=== PATIENT | female | born 1965 | race Caucasian/White ===

== ENCOUNTER 2017-06-09 08:37 | Day surgery (SDC) | payer BC ==
[2017-06-08 09:28] VITALS: BMI 24.3
[2017-06-09] MEDS ORDERED: PROPOFOL 20 ML ONE ×2 (09:47)
[2017-06-09] MEDS ORDERED: LIDOCAINE HCL 2% (20ML MULTI-DOSE VIAL) NR ONE (09:48)
[2017-06-09 10:20] VITALS: TEMP 98.8
[2017-06-09 11:36] VITALS: BP 110/71; PULSE 54
--- NOTE | 2017-06-11 15:04 | PATH ---
Surgical Pathology Report Patient Name: LACIE GARNER [facility]. Rec. #: [id number] /Age/Gender: 1965 (Age: 52) / F Account: [id number] Location: U-ENDOSCOPY Taken: 06/09/2017 Received: 06/09/2017 Reported: 06/11/2017 Physicians: Katherine Garcia M.D. Specimen(s) Received A: BX 2ND PORTION DUODENUM B: BX ANTRUM/ STOMACH C: BX GE JUNCTION D: BX MID ESOPHAGUS Clinical History Preoperative diagnosis: Dysphagia, postprandial bloating Postoperative diagnosis: GE junction structures, GERD, hiatal hernia Final Diagnosis A. DUODENUM, SECOND PORTION/BULB, BIOPSY: DUODENAL MUCOSA WITH MILD CHRONIC DUODENITIS AND SANCHEZ'S GLAND HYPERPLASIA. B. STOMACH, ANTRUM, BIOPSY: GASTRIC ANTRAL MUCOSA WITH MILD CHRONIC GASTRITIS. IMMUNOHISTOCHEMICAL STAIN FOR H. PYLORI IS NEGATIVE. C. GASTROESOPHAGEAL (GE) JUNCTION, BIOPSY: SQUAMOUS MUCOSA WITH MODERATE TO SEVERE ACUTE ESOPHAGITIS AND ULCERATION. FUNGAL SPECIAL STAIN (PAS) IS NEGATIVE. D. MID ESOPHAGUS BIOPSY: SQUAMOUS MUCOSA WITH VASCULAR CONGESTION, AND BASAL CELL HYPERPLASIA CONSISTENT WITH MODERATE TO SEVERE REFLUX TYPE ESOPHAGITIS. Electronically Signed Janet Saenz M.D. Gross Description A. Received in formalin, labeled "biopsy second portion of duodenum/bulb" are 4 schilling, irregular portions of soft tissue ranging from 0.1-0.5 cm. in greatest dimension. The specimens are submitted in toto in one cassette. B. Received in formalin, labeled "biopsy antrum/stomach" are 2 schilling, irregular portions of soft tissue measuring 0.3 and 0.5 cm. in greatest dimension. The specimens are submitted in toto in one cassette. C. Received in formalin, labeled "biopsy GE junction" are 2 schilling, irregular portions of soft tissue averaging 0.4 cm. in greatest dimension. The specimens are submitted in toto in one cassette. D. Received in formalin, labeled "biopsy midesophagus" is a schilling, irregular portion of soft tissue measuring 0.4 cm. in greatest dimension. The specimen is submitted in toto in one cassette. 06/09/2017 saudi06/09/2017
== END 2017-06-09 11:15 | disposition home or self-care (01) ==
LOC: JASU-ENDO 08:37
PROVIDERS: ATTEND Internal Medicine Gastroenterology
PROC: 0DB68ZX Excision of Stomach, Via Natural or Artificial Opening Endoscopic, Diagnostic (ICD-10-PCS; 2017-06-09)
PROC: 0DB28ZX Excision of Middle Esophagus, Via Natural or Artificial Opening Endoscopic, Diagnostic (ICD-10-PCS; 2017-06-09)
PROC: 0DB48ZX Excision of Esophagogastric Junction, Via Natural or Artificial Opening Endoscopic, Diagnostic (ICD-10-PCS; 2017-06-09)
PROC: 0D748ZZ Dilation of Esophagogastric Junction, Via Natural or Artificial Opening Endoscopic (ICD-10-PCS; 2017-06-09)
PROC: 0DB98ZX Excision of Duodenum, Via Natural or Artificial Opening Endoscopic, Diagnostic (ICD-10-PCS; principal; 2017-06-09 09:00)
DX: K22.2 Esophageal obstruction (principal); K44.9 Diaphragmatic hernia without obstruction or gangrene; K29.80 Duodenitis without bleeding; K31.89 Other diseases of stomach and duodenum; K29.30 Chronic superficial gastritis without bleeding; K21.0 Gastro-esophageal reflux disease with esophagitis; K31.9 Disease of stomach and duodenum, unspecified
CPT/HCPCS: 84703; 88305-TC; 88312-TC; 88342-TC

== ENCOUNTER 2018-01-05 08:40 | Day surgery (SDC) | payer BC ==
[2018-01-05 09:20] VITALS: BMI 23.0
[2018-01-05 13:05] VITALS: BP 125/77; PULSE 58; TEMP 98
--- NOTE | 2018-01-07 16:01 | PATH ---
Surgical Pathology Report Patient Name: LACIE GARNER [facility]. Rec. #: [id number] /Age/Gender: 1965 (Age: 52) / F Account: [id number] Location: [facility]-ENDOSCOPY Taken: 01/05/2018 Received: 01/05/2018 Reported: 01/07/2018 Physicians: Katherine Garcia M.D. Specimen(s) Received A: BX GE JUNCTION B: BX DISTAL ESOPHAGUS Clinical History Esophageal stricture, GERD Postoperative diagnosis: Reflux esophagitis, esophageal stricture, hiatal hernia, rule out Lyman's Final Diagnosis A. GASTROESOPHAGEAL (GE) JUNCTION, 32 CM, BIOPSY: SQUAMOCOLUMNAR MUCOSA WITH MODERATE ACUTE AND CHRONIC INFLAMMATION AND CHANGES OF MODERATE TO AND SEVERE REFLUX ESOPHAGITIS. INTESTINAL METAPLASIA PRESENT CONSISTENT WITH LYMAN'S ESOPHAGUS IN A CONCORDANT WITH CLINICAL SETTING. NO DYSPLASIA IDENTIFIED. DETACHED FRAGMENT OF ACUTE INFLAMMATORY EXUDATE CONSISTENT WITH ULCER BASE. B. DISTAL ESOPHAGUS, 30 CM, BIOPSY: SQUAMOUS MUCOSA WITH BASAL CELL HYPERPLASIA, SEVERE ACUTE ESOPHAGITIS WITH ASSOCIATED ULCERATION AND REACTIVE CHANGES. NO COLUMNAR MUCOSA, INTESTINAL METAPLASIA OR DYSPLASIA IDENTIFIED. PAS FUNGAL STAIN IS NEGATIVE. Electronically Signed Janet Saenz M.D. Gross Description A. Received in formalin, labeled "biopsy GE junction stricture at 32 cm" are 3 schilling, irregular portions of soft tissue ranging from 0.3-0.5 cm. in greatest dimension. The specimens are submitted in toto in one cassette. B. Received in formalin, labeled "biopsy distal esophagus at 30 cm" are 4 schilling, irregular portions of soft tissue ranging from 0.2-0.3 cm. in greatest dimension. The specimens are submitted in toto in one cassette. 01/05/2018 formerly [facility]01/05/2018
== END 2018-01-05 13:05 | disposition home or self-care (01) ==
LOC: JASU-ENDO 08:40
PROVIDERS: ATTEND Internal Medicine Gastroenterology
PROC: 0D738ZZ Dilation of Lower Esophagus, Via Natural or Artificial Opening Endoscopic (ICD-10-PCS; 2018-01-05)
PROC: 0D758ZZ Dilation of Esophagus, Via Natural or Artificial Opening Endoscopic (ICD-10-PCS; 2018-01-05)
PROC: 0DB58ZX Excision of Esophagus, Via Natural or Artificial Opening Endoscopic, Diagnostic (ICD-10-PCS; 2018-01-05)
PROC: 0D748ZZ Dilation of Esophagogastric Junction, Via Natural or Artificial Opening Endoscopic (ICD-10-PCS; principal; 2018-01-05 09:30)
DX: K22.2 Esophageal obstruction (principal); K21.0 Gastro-esophageal reflux disease with esophagitis; K44.9 Diaphragmatic hernia without obstruction or gangrene
CPT/HCPCS: 74220-TC-FY; 76000-TC-FY; 84703; 88305-TC; 88312-TC

== ENCOUNTER 2021-09-05 04:21 | Day surgery (SDC) | payer BC ==
[2021-09-04 08:53] VITALS: BMI 24.3
[2021-09-05 11:22] VITALS: BP 120/68; PULSE 47; TEMP 97.8
== END 2021-09-05 11:00 | disposition home or self-care (01) ==
LOC: JASU-ENDO 04:21
PROVIDERS: ATTEND Internal Medicine Gastroenterology
PROC: 0D748ZZ Dilation of Esophagogastric Junction, Via Natural or Artificial Opening Endoscopic (ICD-10-PCS; 2021-09-05)
PROC: 0DB48ZX Excision of Esophagogastric Junction, Via Natural or Artificial Opening Endoscopic, Diagnostic (ICD-10-PCS; principal; 2021-09-05 09:00)
DX: K22.2 Esophageal obstruction (principal); K21.00 Gastro-esophageal reflux disease with esophagitis, without bleeding; K31.84 Gastroparesis; K44.9 Diaphragmatic hernia without obstruction or gangrene
CPT/HCPCS: 76000-TC-FY; 88305-TC; 88312-TC

== ENCOUNTER 2021-12-01 04:46 | Day surgery (SDC) | payer BC ==
[2021-11-27 12:45] VITALS: BMI 24.3
[2021-12-01 11:10] VITALS: TEMP 97.1
[2021-12-01 11:37] VITALS: BP 142/75; PULSE 51; RESP 10
== END 2021-12-01 12:10 | disposition home or self-care (01) ==
LOC: JASU-ENDO 04:46
PROVIDERS: ATTEND Internal Medicine Gastroenterology
PROC: 0DJD8ZZ Inspection of Lower Intestinal Tract, Via Natural or Artificial Opening Endoscopic (ICD-10-PCS; principal; 2021-12-01 11:00)
DX: Z12.11 Encounter for screening for malignant neoplasm of colon (principal); K57.30 Diverticulosis of large intestine without perforation or abscess without bleeding